=== PATIENT | male | born 1955 | race African-American/Black ===

== ENCOUNTER 2018-03-24 13:27 | Inpatient (IN) | payer MEDICAID ==
[~2018-03-24] VITALS: Ht 167.6 cm; Wt 65.8 kg
[~2018-03-24 13:27] MED LIST: GABA300C PO; LEVVL SQ
[2018-03-24 22:03] LABS: BASOPHILS % 0.6 % (0.0-2.0); HEMATOCRIT. 39.3 % (42.0-52.0); HEMOGLOBIN. 13.2 g/dL (14.0-18.0); LYMPHOCYTES % 7.5 % (20.0-50.0); MEAN CORPUSCULAR VOLUME 92.1 fL (80.0-94.0); MEAN PLATELET VOLUME 8.5 fl (7.4-10.4); MONOCYTES % 5.1 % (2.0-8.0); NEUTROPHILS % 86.8 % (40.0-76.0); PLATELET 402 x1000/uL (130-400); RED BLOOD CELL COUNT 4.26 mill/uL (4.7-6.1); RED CELL DISTRIBUTION WIDTH 13.6 % (11.6-14.6)
[2018-03-24 22:04] LABS: CHLORIDE 96 mEq/L (98-107)
[2018-03-24] MEDS ORDERED: KETOROLAC 30MG/ML VIAL IV STA (22:43)
[2018-03-24] MEDS ORDERED: ONDANSETRON HCL 4MG/2ML INJ IV STA (22:43)
[2018-03-24] MEDS ORDERED: SODIUM CHLORIDE 0.9% 1,000 ML IV ONE (22:43)
[2018-03-24] MEDS ORDERED: FAMOTIDINE 20MG/2ML VIAL IV STA (22:43)
[2018-03-25] MEDS ORDERED: CLONIDINE 0.1MG TABLET PO PRN (10:15)
[2018-03-25] MEDS ORDERED: DEXTROSE 50% WATER 50ML SYRINGE IV PRN (10:15)
[2018-03-25] MEDS ORDERED: HYDRALAZINE 20MG/ML VIAL IV PRN ×2 (10:15→11:45)
[2018-03-25] MEDS ORDERED: CEFTRIAXONE 1 G PREMIX 50 ML IV SCH (10:15)
[2018-03-25] MEDS ORDERED: METOPROLOL TARTRATE 50MG TABLET PO ONE (11:50)
[2018-03-25] MEDS ORDERED: CEFTRIAXONE 1 G PREMIX 50 ML IV ONE (11:51)
[2018-03-25] MEDS: ONDANSETRON HCL 4MG/2ML INJ IV PRN (12:18)
[2018-03-25] MEDS: BLOOD SUGAR DIAGNOSTIC STRIP TEST SCH ×3 (13:00→21:14)
[2018-03-25 13:11] LABS: CLARITY URINE CLEAR (CLEAR); COLOR URINE YELLOW (YELLOW); KETONES URINE TRACE (NEGATIVE); LEUKOCYTE ESTERASE URINE NEGATIVE (NEGATIVE); NITRITE URINE NEGATIVE (NEGATIVE); OCCULT BLOOD URINE 2+ (NEGATIVE); PROTEIN URINE 2+ (NEGATIVE); SPECIFIC GRAVITY URINE 1.019 (1.005-1.030); UROBILINOGEN URINE 0.2 E.U./dL (0.2-1.0)
[2018-03-25 13:26] LABS: *AMPHETAMINES SCREEN URINE NEGATIVE (NEGATIVE); *BARBITURATES SCREEN URINE NEGATIVE (NEGATIVE); *BENZODIAZEPINES SCREEN URINE NEGATIVE (NEGATIVE); *COCAINE SCREEN URINE NEGATIVE (NEGATIVE); METHADONE URINE SCREEN NEGATIVE (NEGATIVE); OPIATES URINE SCREEN NEGATIVE (NEGATIVE)
[2018-03-25 13:27] LABS: CANNABINOID URINE SCREEN PRESUMTIVE POSITIVE (NEGATIVE); PHENCYCLIDINE URINE SCREEN NEGATIVE (NEGATIVE)
[2018-03-25 14:00] VITALS: BP 100/88
[2018-03-25] MEDS ORDERED: HYDRALAZINE 10 MG in SODIUM CHLORIDE 0.9% 49.5 ML IV PRN (15:00)
[2018-03-25 16:00] VITALS: BP 137/71
[2018-03-25] MEDS: INSULIN LISPRO 100 UNITS/ML SUBCUT SCH ×3 (17:50→21:00)
[2018-03-25] MEDS: SODIUM CHLORIDE 0.45% 1,000 ML IV SCH (18:28)
[2018-03-25 19:53] VITALS: BP 145/61
[2018-03-25 20:00] VITALS: BP 129/82
[2018-03-25] MEDS ORDERED: ENOXAPARIN 30MG/0.3ML SYR SUBCUT SCH (21:00)
[2018-03-25] MEDS: HYDROMORPHONE HCL/PF 2MG/ML CPJ IV PRN (21:10)
[2018-03-25] MEDS: AMLODIPINE 5MG TABLET PO SCH (21:13)
[2018-03-25] MEDS: INSULIN GLARGINE UD 100 UNITS/ML SYR SUBCUT SCH (21:20)
[2018-03-26] VITALS: BP 138/77
[2018-03-26] MEDS: HYDROMORPHONE HCL/PF 2MG/ML CPJ IV PRN ×5 (03:59→22:50)
[2018-03-26 04:00] VITALS: BP 113/70
[2018-03-26] MEDS: SODIUM CHLORIDE 0.45% 1,000 ML IV SCH ×2 (04:21→22:48)
[2018-03-26] MEDS: INSULIN LISPRO 100 UNITS/ML SUBCUT SCH ×4 (06:58→21:00)
[2018-03-26] MEDS: BLOOD SUGAR DIAGNOSTIC STRIP TEST SCH ×4 (06:58→21:00)
[2018-03-26 08:04] VITALS: BP 133/86
[2018-03-26] MEDS: PANTOPRAZOLE SODIUM 40 MG/VIAL IV SCH (08:27)
[2018-03-26] MEDS: AMLODIPINE 5MG TABLET PO SCH ×2 (08:27→21:00)
[2018-03-26 10:34] LABS: BASOPHILS % 0.4 % (0.0-2.0); EOSINOPHILS % 0.1 % (0.0-5.0); HEMATOCRIT. 37.5 % (42.0-52.0); HEMOGLOBIN. 12.3 g/dL (14.0-18.0); LYMPHOCYTES % 18.8 % (20.0-50.0); MEAN CORPUSCULAR HEMOGLOBIN 30.4 pg (28.0-32.0); MEAN CORPUSCULAR VOLUME 92.7 fL (80.0-94.0); MEAN PLATELET VOLUME 8.7 fl (7.4-10.4); MONOCYTES % 8.7 % (2.0-8.0); PLATELET 350 x1000/uL (130-400); RED BLOOD CELL COUNT 4.04 mill/uL (4.7-6.1); RED CELL DISTRIBUTION WIDTH 13.1 % (11.6-14.6)
[2018-03-26] MEDS: INSULIN GLARGINE UD 100 UNITS/ML SYR SUBCUT SCH ×2 (11:19→22:00)
[2018-03-26 12:00] VITALS: BP 133/80
[2018-03-26] MEDS ORDERED: ENOXAPARIN 40MG/0.4ML SYR SUBCUT SCH ×2 (15:43→21:00)
[2018-03-26 16:00] VITALS: BP 109/79
[2018-03-26] MEDS: ONDANSETRON HCL 4MG/2ML INJ IV PRN ×2 (16:38→22:47)
[2018-03-26 20:00] VITALS: BP 99/67
[2018-03-27] VITALS (7 sets, daily range): BP systolic 103–129; BP diastolic 61–75
[2018-03-27] MEDS: SODIUM CHLORIDE 0.45% 1,000 ML IV SCH (06:09)
[2018-03-27] MEDS: INSULIN LISPRO 100 UNITS/ML SUBCUT SCH ×3 (06:35→16:58)
[2018-03-27] MEDS: BLOOD SUGAR DIAGNOSTIC STRIP TEST SCH ×3 (06:35→16:58)
[2018-03-27 06:42] LABS: BASOPHILS % 0.3 % (0.0-2.0); EOSINOPHILS % 1.1 % (0.0-5.0); HEMATOCRIT. 35.9 % (42.0-52.0); HEMOGLOBIN. 11.9 g/dL (14.0-18.0); LYMPHOCYTES % 30.5 % (20.0-50.0); MEAN CORPUSCULAR HEMOGLOBIN 30.9 pg (28.0-32.0); MEAN CORPUSCULAR VOLUME 93.6 fL (80.0-94.0); MEAN PLATELET VOLUME 8.6 fl (7.4-10.4); MONOCYTES % 8.6 % (2.0-8.0); NEUTROPHILS % 59.5 % (40.0-76.0); PLATELET 313 x1000/uL (130-400); RED BLOOD CELL COUNT 3.84 mill/uL (4.7-6.1); RED CELL DISTRIBUTION WIDTH 13.2 % (11.6-14.6)
[2018-03-27] MEDS: HYDROMORPHONE HCL/PF 2MG/ML CPJ IV PRN ×2 (08:38→13:41)
[2018-03-27] MEDS: PANTOPRAZOLE SODIUM 40 MG/VIAL IV SCH (08:39)
[2018-03-27] MEDS: AMLODIPINE 5MG TABLET PO SCH (08:39)
[2018-03-27] MEDS: INSULIN GLARGINE UD 100 UNITS/ML SYR SUBCUT SCH (09:34)
[2018-03-27] MEDS ORDERED: POTASSIUM CHLORIDE 20MEQ TABLET SR PO NR (20:00)
[2018-03-28] MEDS ORDERED: FAMOTIDINE 20MG TABLET PO SCH (09:00)
== END 2018-03-27 20:40 | disposition home or self-care (01) | DRG 720 ==
LOC: ER 13:27 → 6EST 03-25 04:55 → EDBEDREQ 03-25 05:00 → EDBEDREQTM 03-25 05:00 → ENRESERV 03-25 09:56
PROVIDERS: ADMIT Internal Medicine; ATTEND Internal Medicine
DX: A41.9 Sepsis, unspecified organism (principal); K85.90 Acute pancreatitis without necrosis or infection, unspecified; E11.22 Type 2 diabetes mellitus with diabetic chronic kidney disease; E87.1 Hypo-osmolality and hyponatremia; N18.3 Chronic kidney disease, stage 3 (moderate); E87.8 Other disorders of electrolyte and fluid balance, not elsewhere classified; D64.9 Anemia, unspecified; I12.9 Hypertensive chronic kidney disease with stage 1 through stage 4 chronic kidney disease, or unspecified chronic kidney disease; F12.90 Cannabis use, unspecified, uncomplicated; Z86.73 Personal history of transient ischemic attack (TIA), and cerebral infarction without residual deficits; Z87.891 Personal history of nicotine dependence; Z79.4 Long term (current) use of insulin; Z79.84 Long term (current) use of oral hypoglycemic drugs
CPT/HCPCS: 36415; 71045; 76700; 80048; 80305; 82962; 83605; 83880; 84484; 93005; 96361; 96374; 96375; 99285; C1893; C9113; J0360; J0696; J1170; J1650; J1815; J1885; J2405; J3490; J7030